=== PATIENT | male | born 1985 | race African-American/Black ===

== ENCOUNTER → 2020-03-09 | Outpatient (CLI) | payer OTHER ==
--- NOTE | 2020-03-09 11:47 | RAD ---
EXAM: Chest, 2 views. HISTORY: Positive tuberculin skin test. COMPARISON: None. FINDINGS: 2 views of the chest are obtained. There is no infiltrate, pleural effusion or pneumothorax. The heart is normal in size. IMPRESSION: No acute pulmonary finding. Electronically signed by: Jamila Torres MD (03/09/2020 11:44 AM) [id number]
== END | disposition home or self-care (01) ==
LOC: RAD 11:22 → EEVIPCON 11:22
PROVIDERS: ATTEND Preventive Medicine Occupational Medicine
DX: R76.11 Nonspecific reaction to tuberculin skin test without active tuberculosis (principal)
CPT/HCPCS: 71046